=== PATIENT | male | born 1945 | race Caucasian/White ===

== ENCOUNTER 2022-12-04 10:24 | Emergency (ER) | payer MEDICARE, BC, SELFPAY ==
[2022-12-04] VITALS (50 sets, daily range): BP systolic 138–208; BP diastolic 56–84; PULSE 58–73; RESP 10–26; TEMP 36.5; O2SAT 90–100; BMI 31.1
--- NOTE | 2022-12-04 10:37 | DI.CT.S_ITS ---
PROCEDURE: CT HEAD/BRAIN WO CON INDICATIONS: fall t-7, left face trauma, h/o subdural years ago TECHNIQUE: Noncontrast 4.5 mm thick angled axial sections acquired from the foramen magnum to the vertex, with coronal and sagittal reformats. For radiation dose reduction, the following was used: automated exposure control, adjustment of mA and/or kV according to patient size. COMPARISON: None. FINDINGS: Image quality: Excellent. CSF spaces: Basal cisterns are patent. No extra-axial fluid collections. The ventricles are symmetric in size and shape. Intraventricular hemorrhage measures 1.6 x 1.9 x 2.9 cm, collecting in the midline along the lateral ventricles and extending into the 3rd ventricle. No developing hydrocephalus currently. There is a small amount of associated hemorrhage in the temporal horn of the right lateral ventricle. Additionally, there is a small amount of subarachnoid hemorrhage on the left. Brain: Intracranial hemorrhage as described above. No masses identified. There is cerebral volume loss for age, with resultant ventricular and sulcal prominence. There are [id number] periventricular and deep white matter chronic small vessel ischemic changes. There is intracranial internal carotid artery atherosclerosis. Skull and face: Remote left temporal craniotomy. Calvarium and visualized facial bones appear intact, without suspicious lesions. Sinuses: Visualized sinuses and mastoids are clear. IMPRESSION: 1. Acute intraventricular hemorrhage without development of hydrocephalus as yet. 2. Small amount of associated subarachnoid hemorrhage. 3. No evidence of shift. No impending herniation. 4. Age-related volume loss and small vessel ischemic change. 5. Remote left temporal craniotomy. Comment: Findings were discussed with Dr. Wilson on 12/04/2022 at 1118 hours Dictated by: Abdirahman Ochoa M.D. on 12/04/2022 at 11:17 Approved by: Abdirahman Ochoa M.D. on 12/04/2022 at 11:21
--- NOTE | 2022-12-04 10:37 | DI.CT.S_ITS ---
PROCEDURE: CT CERVICAL SPINE WO CON INDICATIONS: fall t-7, left face trauma, h/o subdural years ago TECHNIQUE: Noncontrast 3 mm thick sections acquired from the skull base to the T4 level. Sagittal and coronal reformats were then constructed. For radiation dose reduction, the following was used: automated exposure control, adjustment of mA and/or kV according to patient size. COMPARISON: None. FINDINGS: Image quality: Excellent. Bones: No fractures or dislocations. Visualized superior ribs are intact. Cervical spondylitic change with multilevel facet arthropathy. Uncovertebral joint hypertrophy results in foraminal narrowing at C3-C4 and C6-C7. Soft tissues: Prevertebral soft tissues are normal in thickness. No paravertebral hematomas. No apical pneumothoraces. IMPRESSION: 1. No acute cervical fracture or dislocation. 2. Cervical spondylitic change. Dictated by: Abdirahman Ochoa M.D. on 12/04/2022 at 11:22 Approved by: Abdirahman Ochoa M.D. on 12/04/2022 at 11:26
--- NOTE | 2022-12-04 10:37 | DI.CT.S_ITS ---
PROCEDURE: CT FACIAL BONES WO CON INDICATIONS: fall t-7, L facial trauma TECHNIQUE: Noncontrast 2.5 mm thick axial images acquired from the mandible through the frontal sinuses, with coronal and sagittal reformatting. For radiation dose reduction, the following was used: automated exposure control, adjustment of mA and/or kV according to patient size. COMPARISON: None. FINDINGS: Image quality: Excellent. Bones and teeth: Orbital pabon are intact. Sinus pabon show no fracture or deformity. Nasal bones and septum are intact. Visualized portions of the mandible demonstrate no fractures or subluxation. Zygomatic arches are intact. Pterygoid plates are intact. Visualized portions of the skull base and auditory canals are intact. Sinuses: Paranasal sinuses are aerated, without fluid levels, mucosal thickening, or mucoceles. Mastoid air cells are aerated. Soft tissues: No edema, masses, or fluid collections. No enlarged lymph nodes. No soft tissue lacerations or debris. Scalp contusion overlying the left anterior frontal bone. Vascular: Visualized vascular structures appear normal in the absence of contrast. Bony vascular foramina and canals are intact. IMPRESSION: Scalp contusion overlying the left anterior frontal bone. No displaced fracture. Dictated by: Nelson Krishna M.D. on 12/04/2022 at 11:14 Approved by: Nelson Krishna M.D. on 12/04/2022 at 11:15
--- NOTE | 2022-12-04 11:26 | DI.CT.S_ITS ---
PROCEDURE: CT CHEST ABD PEL W CON INDICATIONS: Fall/trauma TECHNIQUE: After the administration of intravenous contrast, 5 mm thick sections acquired from the lung apices to the symphysis. 2.5 mm thick coronal and sagittal reformats were acquired. Additional 7 mm thick coronal maximum intensity projection (MIP) reformats acquired through the lungs. Optional 10-minute delayed imaging may be performed from the kidneys to the bladder. For radiation dose reduction, the following was used: automated exposure control, adjustment of mA and/or kV according to patient size. COMPARISON: None. FINDINGS: Image quality: Excellent. CHEST: Lungs: No pulmonary contusions or lacerations. No acute airspace opacities. No pneumothorax or hemothorax. Central and peripheral airways appear patent and normal in caliber. Mediastinum: No mediastinal hematomas. Heart size is normal. No pericardial effusion. Remote CABG. Pacemaker. Dense extensive coronary artery calcifications. Percutaneous aortic valve. Thoracic aorta and pulmonary arteries demonstrate normal size and enhancement. No mediastinal or hilar adenopathy. Esophagus is normal in caliber. No hiatal hernia. Chest wall: No rib fractures. No subcutaneous emphysema. No axillary or supraclavicular adenopathy. Thyroid gland is unremarkable. ABDOMEN: Solid organs: Liver is normal in size and enhancement, without lacerations. Surface nodularity of the liver is consistent with cirrhotic change. Gallbladder contains multiple small layering gallstones. No gallbladder wall thickening. Moderate gallbladder distention.. Biliary system is non-dilated. Pancreas enhances normally, without transection. Spleen is normal in size and enhancement, without lacerations. No adrenal hematomas. Both kidneys enhance normally, without hydronephrosis or lacerations. Peritoneum and bowel: No free fluid or air. Unenhanced bowel loops demonstrate normal wall thickness and caliber. Nodes and vessels: No retroperitoneal or mesenteric adenopathy. 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 There are calcified occlusions of the bilateral proximal SFAs. Gastric wall varicosities. Miscellaneous: No ventral hernias. PELVIS: Genitourinary: Bladder wall thickness is normal. Miscellaneous: No inguinal hernias or adenopathy. Bones: Pelvic ring and hip joints appear intact. No vertebral compression fractures. Old left lateral 2nd rib fracture. Old right lateral rib fractures. No acute displaced rib fracture. IMPRESSION: 1. No evidence of significant sequelae of acute trauma in the chest, abdomen, and pelvis. 2. Remote CABG, pacemaker, percutaneous aortic valve, advanced coronary atherosclerotic calcifications. 3. No acute process in the chest, abdomen, and pelvis. 4. Cirrhosis with associated gastric varicosities. 5. Extensive peripheral vasculopathy. Patent aortobifemoral bypass. Bilateral calcified proximal SFA occlusions. Dictated by: Abdirahman Ochoa M.D. on 12/04/2022 at 11:52 Approved by: Abdirahman Ochoa M.D. on 12/04/2022 at 12:00
[2022-12-04 11:46] LABS: Add Manual Diff / Slide Review NO; Basophils Absolute Auto 100 /uL (0-100); Basophils Percent Auto 0.7 % (0-2); Eosinophils Absolute Auto 100 /uL (0-450); Eosinophils Percent Auto 1.7 % (2-4); Hematocrit 36.5 % (41-53); Hemoglobin 12.7 g/dL (13.5-17.5); Lymphocytes Absolute Auto 1700 /uL (1100-4500); Lymphocytes Percent Auto 22.2 % (25-40); Mean Corpuscular HGB Conc 34.7 % (30-36); Mean Corpuscular Hemoglobin 33.3 PG (26-34); Monocytes Absolute Auto 700 /uL (0-900); Neutrophils Absolute Auto 4900 /uL (1500-7000); Neutrophils Percent Auto 65.4 % (50-75); Platelet Count 65 X10^3/uL (150-400); Red Cell Distribution Width 16.2 % (11.6-14.8); White Blood Cell Count 7.5 X10^3/uL (4.5-11.0)
[2022-12-04 11:54] LABS: INR 1.2 (0.9-1.3); Prothrombin Time 13.3 SECONDS (10.1-12.7)
[2022-12-04 11:57] LABS: PTT Partial Thromboplastin Tim 31 SECONDS (26-36)
[2022-12-04 11:59] LABS: Alanine Aminotransferase 32 IU/L (<50); Albumin 4.2 g/dL (3.5-5.0); Albumin Globulin Ratio 1.2 (1.0-2.8); Alkaline Phosphatase 140 U/L (38-126); Aspartate Aminotransferase 53 IU/L (17-59); BUN Creatinine Ratio 12.1 (6-22); Blood Urea Nitrogen 14 mg/dL (9-20); Calcium 9.5 mg/dL (8.4-10.2); Carbon Dioxide 26 mmol/L (22-32); Chloride 101 mmol/L (98-107); Estimated Glomerular Filt Rate > 60 mL/min (>60); Ethanol (ETOH) < 10 mg/dL; Globulin 3.5 g/dL (1.7-4.1); Glucose 122 mg/dL (80-110); HEMOLYSIS < 15 (0-50); Lipase 33 U/L (23-300); Sodium 136 mmol/L (137-145); Total Protein 7.7 g/dL (6.3-8.2)
--- NOTE | 2022-12-04 11:59 | ED_ITS ---
HPI - Head Injury General Chief complaint: Trauma Stated complaint: fell apx t-7 and having headaches still Time Seen by Provider: 12/04/22 11:18 Source: patient Mode of arrival: Ambulatory History of Present Illness HPI Narrative: Patient here with for complaints of headache. Awoke him in the middle of night last night. Patient had mechanical fall 8 days ago tripped and fell on the left side of his head. No loss of consciousness. He is on baby aspirin. He was seen at an outside emergency department. No CT imaging was done at the time. Since then his headache has gotten worse. Last night it intensified. No vomiting. No numbness tingling or weakness. No altered mental status. Patient is awake alert oriented x4. No limb deficits. No seizures. GCS of 15 at currently Related Data Home Medications Medication Instructions Recorded Confirmed acetaminophen 325 mg tablet 325 mg PO DAILY 12/04/22 12/04/22 aspirin 81 mg tablet 81 mg PO DAILY 12/04/22 12/04/22 atorvastatin 80 mg tablet 80 mg PO DAILY 12/04/22 12/04/22 cyanocobalamin (vitamin B-12) 1,000 mcg PO DAILY 12/04/22 12/04/22 1,000 mcg tablet,extended release cyclobenzaprine 5 mg tablet 5 mg PO DAILY PRN muscle spasms 12/04/22 12/04/22 folic acid 800 mcg tablet 0.8 mg PO DAILY 12/04/22 12/04/22 furosemide 40 mg tablet 40 mg PO DAILY 12/04/22 12/04/22 isosorbide mononitrate 30 mg 45 mg PO DAILY 12/04/22 12/04/22 tablet,extended release 24 hr metoprolol tartrate 25 mg tablet 25 mg PO DAILY 12/04/22 12/04/22 nitroglycerin 0.4 mg sublingual 0.4 mg sublingual Q5-15M PRN Chest 12/04/22 12/04/22 tablet Pain potassium chloride 10 mEq 10 meq PO DAILY 12/04/22 12/04/22 capsule,extended release Allergies Allergy/AdvReac Type Severity Reaction Status Date / Time No Known Drug Allergies Allergy Verified 12/04/22 10:36 Review of Systems Review of Systems Narrative: GENERAL: negative chills, fatigue, malaise, fever, sweats. HEENT: negative sinus pain, ear pain, sore throat RESPIRATORY: negative dyspnea, cough CARDIOVASCULAR: negative chest pain, palpitations GASTROINTESTINAL: negative nausea, vomiting, abdominal pain : negative dysuria, frequency, hematuria MUSCULOSKELETAL: negative muscle or bony pain SKIN: negative rash, skin lesions, positive ecchymosis NEUROLOGIC: negative weakness, numbness, positive headache ROS Unobtainable: All systems reviewed & are unremarkable except as noted in HPI and below Patient History Medical History (Updated 12/04/22 @ 13:35 by Almas Wilson MD) Intracranial hemorrhage following injury Hyperlipidemia Thoracic back pain Hypertension Presence of combination internal cardiac defibrillator (ICD) and pacemaker Surgical History (Updated 12/04/22 @ 12:36 by India Kapadia RN) S/P CABG x 5 Social History Smoking Status: Former smoker Smoking Status: Former smoker alcohol intake frequency: 0-2 drinks per day Substance Use Type: does not use Exam Narrative Exam Narrative: GENERAL: in no distress, not toxic not dyspneic HEAD: Normocephalic. There is tenderness edema contusion to the left frontoparietal scalp. There is dependent ecchymosis descending to the jaw line on the left. Old craniotomy left parietal surgical site palpable. EYES: Pupils equal round ENT: Mucous membranes moist. NECK: Trachea midline. No midline tenderness or step-off CARDIOVASCULAR: Regular rate and rhythm RESPIRATORY: Clear to auscultation. Breath sounds equal bilaterally. No wheezes, rales, or rhonchi. GASTROINTESTINAL: Abdomen soft, non-tender EXTREMITIES: No gross deformities. BACK: No flank tenderness. NEURO: AOx4. Clear speech no facial droop light touch intact about the face hands with strong equal executive secretary social welfare. He is able to lift each leg off bed independently. SKIN: Warm and dry PSYCH: Not anxious, is cooperative Initial Vital Signs Initial Vital Signs: Vital Signs Temperature 97.7 F 12/04/22 10:31 Pulse Rate 70 12/04/22 10:31 Respiratory Rate 18 12/04/22 10:31 Blood Pressure 167/80 H 12/04/22 10:31 Pulse Oximetry 99 12/04/22 10:31 Oxygen Delivery Method Room Air 12/04/22 10:31 Course Orders Ordered: Discontinued Medications Nicardipine HCl 25 mg/ Sodium (Chloride) 250 mls @ 50 mls/hr IV TITRATE SABRINA; Protocol Last Titration: 12/04/22 13:12 Dose: 2 mg/hr, 20 mls/hr Documented By: Titration: 12/04/22 13:02 Dose: 3 mg/hr, 30 mls/hr Documented By: Admin: 12/04/22 12:47 Dose: 5 mg/hr, 50 mls/hr Documented By: FOREST Morphine Sulfate (Morphine 4 Mg/Ml Inj) 4 mg IV NOW ONE Stop: 12/04/22 12:01 Last Admin: 12/04/22 12:10 Dose: 4 mg Documented By: FOREST Morphine Sulfate (Morphine 4 Mg/Ml Inj) 4 mg IV NOW ONE Stop: 12/04/22 13:52 Last Admin: 12/04/22 13:55 Dose: 4 mg Documented By: SAMANTA Ondansetron HCl (Ondansetron 4 Mg/2 Ml Inj) 4 mg IV NOW ONE Stop: 12/04/22 12:01 Last Admin: 12/04/22 12:10 Dose: 4 mg Documented By: FOREST Ondansetron HCl (Ondansetron 4 Mg/2 Ml Inj) 4 mg IV NOW ONE Stop: 12/04/22 14:23 Last Admin: 12/04/22 14:26 Dose: 4 mg Documented By: FOREST Vital Signs Vital signs: Vital Signs - 8 hr 12/04/22 10:31 12/04/22 11:25 12/04/22 11:28 Temperature 97.7 F Pulse Rate 70 62 67 Respiratory Rate 18 16 Blood Pressure 167/80 H Pulse Oximetry 99 98 98 Oxygen Delivery Method Room Air 12/04/22 11:28 12/04/22 11:18 12/04/22 11:57 Temperature Pulse Rate 63 70 Respiratory Rate 17 20 Blood Pressure 177/74 H 180/75 H 183/79 H Pulse Oximetry 98 Oxygen Delivery Method Room Air 12/04/22 11:38 12/04/22 11:40 12/04/22 11:45 Temperature Pulse Rate 58 L 66 65 Respiratory Rate 16 Blood Pressure Pulse Oximetry 90 L 98 Oxygen Delivery Method 12/04/22 11:50 12/04/22 11:54 12/04/22 11:54 Temperature Pulse Rate 67 66 Respiratory Rate 16 16 Blood Pressure 180/75 H Pulse Oximetry 99 Oxygen Delivery Method 12/04/22 11:55 12/04/22 12:00 12/04/22 12:00 Temperature Pulse Rate 64 64 Respiratory Rate 18 19 Blood Pressure 183/79 H Pulse Oximetry 99 99 Oxygen Delivery Method 12/04/22 12:05 12/04/22 12:10 12/04/22 12:15 Temperature Pulse Rate 73 60 61 Respiratory Rate 24 20 16 Blood Pressure Pulse Oximetry 98 100 99 Oxygen Delivery Method 12/04/22 12:18 12/04/22 12:18 12/04/22 12:19 Temperature Pulse Rate 66 Respiratory Rate 15 Blood Pressure 208/81 H 195/84 H Pulse Oximetry 100 Oxygen Delivery Method 12/04/22 12:19 12/04/22 12:20 12/04/22 12:20 Temperature Pulse Rate 63 64 Respiratory Rate 18 17 Blood Pressure 180/77 H Pulse Oximetry 98 98 Oxygen Delivery Method 12/04/22 12:21 12/04/22 12:21 12/04/22 12:22 Temperature Pulse Rate 67 67 Respiratory Rate 11 L 18 Blood Pressure 179/80 H Pulse Oximetry 98 97 Oxygen Delivery Method 12/04/22 12:22 12/04/22 12:23 12/04/22 12:23 Temperature Pulse Rate 64 Respiratory Rate 23 Blood Pressure 171/77 H 170/77 H Pulse Oximetry 97 Oxygen Delivery Method 12/04/22 12:25 12/04/22 12:30 12/04/22 12:34 Temperature Pulse Rate 65 60 62 Respiratory Rate 11 L 11 L 10 L Blood Pressure Pulse Oximetry 98 98 98 Oxygen Delivery Method 12/04/22 12:34 12/04/22 12:35 12/04/22 12:40 Temperature Pulse Rate 65 Respiratory Rate 13 Blood Pressure 172/75 H 197/81 H Pulse Oximetry 98 Oxygen Delivery Method 12/04/22 12:40 12/04/22 12:45 12/04/22 12:50 Temperature Pulse Rate 64 65 63 Respiratory Rate 20 20 13 Blood Pressure Pulse Oximetry 99 98 98 Oxygen Delivery Method 12/04/22 12:55 Temperature Pulse Rate 62 Respiratory Rate 15 Blood Pressure Pulse Oximetry 96 Oxygen Delivery Method MDM - Head Injury Lab Data 12/04/22 11:30 12/04/22 11:30 Labs: Lab Results 12/04/22 Range/Units 11:30 WBC 7.5 (4.5-11.0) X10^3/uL RBC 3.80 L (4.5-5.9) X10^6/uL Hgb 12.7 L (13.5-17.5) g/dL Hct 36.5 L (41-53) % MCV 96.0 (80-100) fL MCH 33.3 (26-34) PG MCHC 34.7 (30-36) % RDW 16.2 H (11.6-14.8) % Plt Count 65 L (150-400) X10^3/uL Neut % (Auto) 65.4 (50-75) % Lymph % (Auto) 22.2 L (25-40) % [place] % (Auto) 10.0 (3-14) % Eos % (Auto) 1.7 L (2-4) % Baso % (Auto) 0.7 (0-2) % Neut # (Auto) 4900 (9661-9868) /uL Lymph # (Auto) 1700 (3520-1422) /uL [place] # (Auto) 700 (0-900) /uL Eos # (Auto) 100 (0-450) /uL Baso # (Auto) 100 (0-100) /uL PT 13.3 H (10.1-12.7) SECONDS INR 1.2 (0.9-1.3) APTT 31 (26-36) SECONDS Sodium 136 L (137-145) mmol/L Potassium 4.0 (3.4-5.1) mmol/L Chloride 101 (98-107) mmol/L Carbon Dioxide 26 (22-32) mmol/L BUN 14 (9-20) mg/dL Creatinine 1.16 (0.66-1.25) mg/dL Estimated GFR > 60 (>60) mL/min BUN/Creatinine Ratio 12.1 (6-22) Glucose 122 H (80-110) mg/dL Calcium 9.5 (8.4-10.2) mg/dL Total Bilirubin 2.0 H (0.2-1.3) mg/dL AST 53 (17-59) IU/L ALT 32 (<50) IU/L Alkaline Phosphatase 140 H (38-126) U/L Total Protein 7.7 (6.3-8.2) g/dL Albumin 4.2 (3.5-5.0) g/dL Globulin 3.5 (1.7-4.1) g/dL Albumin/Globulin Ratio 1.2 (1.0-2.8) Lipase 33 (23-300) U/L Ethyl Alcohol < 10 ( - 10) mg/dL Blood Type O Positive Antibody Screen Negative Imaging Data CT scan - head: Radiologist's Impression: [address] [address] [address] Scan Report Signed Patient: Jong Fleming MR#: [id number] : 1945 Acct:[id number] Age/Sex: 76 / M Date of Service: 12/04/22 Loc: ED Accession Number: [id number] ?? Procedure: CT head/brain wo con Ordering Provider: Amlas Wilson MD PROCEDURE:? CT HEAD/BRAIN WO CON ? INDICATIONS:? fall t-7, left face trauma, h/o subdural years ago ? TECHNIQUE:? Noncontrast 4.5 mm thick angled axial sections acquired from the foramen magnum to the vertex, with coronal and sagittal reformats.? For radiation dose reduction, the following was used:? automated exposure control, adjustment of mA and/or kV according to patient size.? ? COMPARISON:? None. ? FINDINGS:? Image quality:? Excellent.? ? CSF spaces:? Basal cisterns are patent.? No extra-axial fluid collections.? The ventricles are symmetric in size and shape.? Intraventricular hemorrhage measures 1.6 x 1.9 x 2.9 cm, collecting in the midline along the lateral ventricles and extending into the 3rd ventricle.? No developing hydrocephalus currently.? There is a small amount of associated hemorrhage in the temporal horn of the right lateral ventricle.? Additionally, there is a small amount of subarachnoid hemorrhage on the left.? ? Brain:? Intracranial hemorrhage as described above.? No masses identified.? There is cerebral volume loss for age, with resultant ventricular and sulcal prominence.? There are [id number] periventricular and deep white matter chronic small vessel ischemic changes.? There is intracranial internal carotid artery atherosclerosis.? ? Skull and face:? Remote left temporal craniotomy.? Calvarium and visualized facial bones appear intact, without suspicious lesions.? ? Sinuses:? Visualized sinuses and mastoids are clear.? ? IMPRESSION:? ? 1. Acute intraventricular hemorrhage without development of hydrocephalus as yet. ? 2. Small amount of associated subarachnoid hemorrhage. ? 3. No evidence of shift.? No impending herniation. ? 4. Age-related volume loss and small vessel ischemic change. ? 5. Remote left temporal craniotomy. ? Comment: Findings were discussed with Dr. Wilson on? 12/04/2022 at 1118 hours ? ? ? Dictated by: Abdirahman Ochoa M.D. on 12/04/2022 at 11:17 ? ? Approved by: Abdirahman Ochoa M.D. on 12/04/2022 at 11:21 ? CT - cervical spine: Radiologist's Impression: [address] [address] [address] Scan Report Signed Patient: Jong Fleming MR#: [id number] : 1945 Acct:[id number] Age/Sex: 76 / M Date of Service: 12/04/22 Loc: ED Accession Number: [id number] ?? Procedure: CT cervical spine wo con Ordering Provider: Almas Wilson MD PROCEDURE:? CT CERVICAL SPINE WO CON ? INDICATIONS:? fall t-7, left face trauma, h/o subdural years ago ? TECHNIQUE:? Noncontrast 3 mm thick sections acquired from the skull base to the T4 level.? Sagittal and coronal reformats were then constructed.? For radiation dose reduction, the following was used:? automated exposure control, adjustment of mA and/or kV according to patient size.? ? COMPARISON:? None. ? FINDINGS:? Image quality:? Excellent.? ? Bones:? No fractures or dislocations.? Visualized superior ribs are intact.? Cervical spondylitic change with multilevel facet arthropathy.? Uncovertebral joint hypertrophy results in foraminal narrowing at C3-C4 and C6-C7. ? Soft tissues:? Prevertebral soft tissues are normal in thickness.? No paravertebral hematomas.? No apical pneumothoraces.? ? ? IMPRESSION:? ? 1. No acute cervical fracture or dislocation. ? 2. Cervical spondylitic change. ? Dictated by: Abdirahman Ochoa M.D. on 12/04/2022 at 11:22 ? ? Approved by: Abdirahman Ochoa M.D. on 12/04/2022 at 11:26 ? CT chest abdomen and pelvis: Radiologist's Impression: [address] [address] [address] Scan Report Signed Patient: Jong Fleming MR#: [id number] : 1945 Acct:[id number] Age/Sex: 76 / M Date of Service: 12/04/22 Loc: ED Accession Number: [id number] ?? Procedure: CT chest abd pel w con Ordering Provider: Almas Wilson MD PROCEDURE:? CT CHEST ABD PEL W CON ? INDICATIONS:? Fall/trauma ? TECHNIQUE:? After the administration of intravenous contrast, 5 mm thick sections acquired from the lung apices to the symphysis.? 2.5 mm thick coronal and sagittal reformats were acquired. ?Additional 7 mm thick coronal maximum intensity projection (MIP) reformats acquired through the lungs.? Optional 10-minute delayed imaging may be performed from the kidneys to the bladder.? For radiation dose reduction, the following was used:? automated exposure control, adjustment of mA and/or kV according to patient size.? ? COMPARISON:? None. ? FINDINGS:? Image quality:? Excellent.? ? CHEST:? Lungs:? No pulmonary contusions or lacerations.? No acute airspace opacities.? No pneumothorax or hemothorax.? Central and peripheral airways appear patent and normal in caliber.? ? Mediastinum:? No mediastinal hematomas.? Heart size is normal.? No pericardial effusion.? Remote CABG.? Pacemaker.? Dense extensive coronary artery calcifications.? Percutaneous aortic valve.? Thoracic aorta and pulmonary arteries demonstrate normal size and enhancement.? No mediastinal or hilar adenopathy.? Esophagus is normal in caliber.? No hiatal hernia.? ? Chest wall:? No rib fractures.? No subcutaneous emphysema.? No axillary or supraclavicular adenopathy.? Thyroid gland is unremarkable.? ? ? ABDOMEN:? Solid organs:? Liver is normal in size and enhancement, without lacerations.? Surface nodularity of the liver is consistent with cirrhotic change.? Gallbladder contains multiple small layering gallstones.? No gallbladder wall thickening.? Moderate gallbladder distention..? Biliary system is non-dilated.? Pancreas enhances normally, without transection.? Spleen is normal in size and enhancement, without lacerations.? No adrenal hematomas.? Both kidneys enhance normally, without hydronephrosis or lacerations. ? ? Peritoneum and bowel:? No free fluid or air.? Unenhanced bowel loops demonstrate normal wall thickness and caliber.? ? Nodes and vessels:? No retroperitoneal or mesenteric adenopathy.? 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 There are calcified occlusions of the bilateral proximal SFAs. Gastric wall varicosities.? ? Miscellaneous:? No ventral hernias.? ? ? PELVIS:? Genitourinary:? Bladder wall thickness is normal.? ? Miscellaneous:? No inguinal hernias or adenopathy.? ? Bones:? Pelvic ring and hip joints appear intact.? No vertebral compression fractures.? Old left lateral 2nd rib fracture.? Old right lateral rib fractures.? No acute displaced rib fracture. ? ? IMPRESSION:? ? 1. No evidence of significant sequelae of acute trauma in the chest, abdomen, and pelvis. ? 2. Remote CABG, pacemaker, percutaneous aortic valve, advanced coronary atherosclerotic calcifications. ? 3. No acute process in the chest, abdomen, and pelvis. ? 4. Cirrhosis with associated gastric varicosities. ? 5. Extensive peripheral vasculopathy.? Patent aortobifemoral bypass.? Bilateral calcified proximal SFA occlusions.? Dictated by: Abdirahman Ochoa M.D. on 12/04/2022 at 11:52 ? ? Approved by: Abdirahman Ochoa M.D. on 12/04/2022 at 12:00 ? CT facial bone: Radiologist's Impression: [place] [address] CT Scan Report Signed Patient: Jong Fleming MR#: [id number] : 1945 Acct:[id number] Age/Sex: 76 / M Date of Service: 12/04/22 Loc: ED Accession Number: [id number] ?? Procedure: CT facial bones wo con Ordering Provider: Almas Wilson MD PROCEDURE:? CT FACIAL BONES WO CON ? INDICATIONS:? fall t-7, L facial trauma ? TECHNIQUE:? Noncontrast 2.5 mm thick axial images acquired from the mandible through the frontal sinuses, with coronal and sagittal reformatting.? For radiation dose reduction, the following was used:? automated exposure control, adjustment of mA and/or kV according to patient size.? ? COMPARISON:? None. ? FINDINGS:? Image quality:? Excellent.? ? Bones and teeth:? Orbital pabon are intact.? Sinus pabon show no fracture or deformity.? Nasal bones and septum are intact.? Visualized portions of the mandible demonstrate no fractures or subluxation.? Zygomatic arches are intact.? Pterygoid plates are intact.? Visualized portions of the skull base and auditory canals are intact.? ? Sinuses:? Paranasal sinuses are aerated, without fluid levels, mucosal thickening, or mucoceles.? Mastoid air cells are aerated.? ? Soft tissues:? No edema, masses, or fluid collections.? No enlarged lymph nodes.? No soft tissue lacerations or debris.? Scalp contusion overlying the left anterior frontal bone. ? Vascular:? Visualized vascular structures appear normal in the absence of contrast.? Bony vascular foramina and canals are intact.? ? IMPRESSION:? Scalp contusion overlying the left anterior frontal bone.? No displaced fracture. ? ? Dictated by: Nelson Krishna M.D. on 12/04/2022 at 11:14 ? ? Approved by: Nelson Krishna M.D. on 12/04/2022 at 11:15 ? [facility] Narrative Medical decision making narrative: Patient here with for complaints of headache. Awoke him in the middle of night last night. Patient had mechanical fall 8 days ago tripped and fell on the left side of his head. No loss of consciousness. He is on baby aspirin. He was seen at an outside emergency department. No CT imaging was done at the time. Since then his headache has gotten worse. Last night it intensified. No vomiting. No numbness tingling or weakness. No altered mental status. Patient is awake alert oriented x4. No limb deficits. No seizures. GCS of 15 at currently After history and exam CT head CT facial bone CT cervical spine CT chest abdomen pelvis CBC CMP EKG [facility] CC: Headache Complicating co-morbidities: History of craniotomy Data collected from: Patient and Medical records reviewed: A recent visit for this complaint here at this hospital Differential considered: Includes but not limited to skull fracture intracranial bleed Exam documented above, pertinent findings include: Tender left scalp with facial ecchymosis Lab Test results independently reviewed as above. Pertinent findings: Hemoglobin 12.7 hematocrit 36.5 INR 1.2 sodium 136 potassium 4.0 Independently reviewed EKG atrial paced rhythm with prolonged AV conduction rate 66, left bundle-branch block. Imaging studies independently reviewed: CT head acute intraventricular hemorrhage without hydrocephalus yet, small amount of associated subarachnoid hemorrhage CT cervical spine no acute finding CT chest abdomen pelvis no acute findings CT facial bones no acute finding Consultations: Spoke with radiologist 11:[address] imaging. 1:33 p.m.. Spoke with [facility], dr owen, desires patient to be transferred to their emergency department. Treatments: Morphine Zofran normal saline nicardipine drip Re-evaluations: 12:00 p.m. Reviewed results with patient and . At this time awaiting callback from are reviewed neurosurgical center 12:23 p.m.. Patient states headache 4/10 after morphine. Blood pressure noted. Will start nicardipine drip. Patient's blood pressure has been high as systolic 205. Discussion: Appropriate for transfer as patient has intraventricular bleed as well as subarachnoid bleed. Blood pressure likely reflexive. Requiring nicardipine drip. Diagnosis: Traumatic head bleed Critical Care Time Critical Care Time Attestation: Critical Care Time 35 minutes: Critical care time is separate from other billable procedures. This critical care time includes consultation with family and other consulting doctors, review of records, and interpretation of data from labs, EKGs, imaging, etc. Discharge Plan Departure Patient Disposition: [facility] Clinical Impression: Traumatic intracranial hemorrhage, Thrombocytopenia Prescriptions: No Action Adult Low Dose Aspirin 81 mg Tablet 81 mg PO DAILY furosemide 40 mg Tablet 40 mg PO DAILY cyanocobalamin (vitamin B-12) 1,000 mcg Tablet Extended Release 1,000 mcg PO DAILY atorvastatin 80 mg Tablet 80 mg PO DAILY potassium chloride 10 mEq Capsule, Extended Release 10 meq PO DAILY acetaminophen 325 mg Tablet 325 mg PO DAILY isosorbide mononitrate 30 mg Tablet Extended Release 24 Hr 45 mg PO DAILY nitroglycerin 0.4 mg Tablet, Sublingual 0.4 mg SUBLINGUAL Q5-15M PRN (Reason: Chest Pain) Rx Instructions: do not exceed 3 doses per episode folic acid 800 mcg Tablet 0.8 mg PO DAILY cyclobenzaprine 5 mg Tablet 5 mg PO DAILY PRN (Reason: muscle spasms) metoprolol tartrate 25 mg Tablet 25 mg PO DAILY
[2022-12-04] MEDS: MORPHINE 4 MG/ML INJ IV ×2 (12:10→13:55)
[2022-12-04] MEDS: ONDANSETRON 4 MG/2 ML INJ IV ×2 (12:10→14:26)
[2022-12-04] MEDS: NICARDIPINE 25 MG in SODIUM CHLORIDE 0.9% 240 ML 50 MG IV (12:47)
--- NOTE | 2022-12-04 13:13 | PC.NURSE ---
nicardipine reduced to 2 mg/hr per Dr Wilson.
--- NOTE | 2022-12-04 14:03 | PC.NURSE ---
pt A&O x4. speech clear, coherent and animated. pt answers questions appropriately and denies pain at this time.
== END 2022-12-04 14:36 | disposition short-term general hospital (02) ==
PROVIDERS: Emergency Provider Emergency Medicine
DX: S06.300A Unspecified focal traumatic brain injury without loss of consciousness, initial encounter (principal); D69.6 Thrombocytopenia, unspecified; R51.9 Headache, unspecified; W01.0XXA Fall on same level from slipping, tripping and stumbling without subsequent striking against object, initial encounter; Z79.82 Long term (current) use of aspirin
CPT/HCPCS: 36415; 70450; 70486; 71260; 72125; 74177; 80053; 80320; 83690; 85025; 85610; 85730; 86850; 86900; 86901; 93005; 96365; 96375; 96376; 99284; 99285; 99291; 99292; J2270; J2405; Q9967